=== PATIENT | male | born 1940 | race Caucasian/White ===

== ENCOUNTER 2016-04-15 07:18 | Day surgery (SDC) | payer MEDICARE, OTHER ==
[2016-04-15] VITALS (11 sets, daily range): BP systolic 104–128; BP diastolic 52–80; PULSE 93–105; RESP 15–21; Ht 167.6 cm; Wt 66.4 kg
[~2016-04-15] VITALS: Ht 167.6 cm; Wt 66.4 kg
[~2016-04-15 07:18] MED LIST: CIPROFLOXACIN 400 MG in D5W 200 ML IVPB SCH
[2016-04-15] MEDS ORDERED: PROPOFOL 20 ML ONE (09:34)
[2016-04-15] MEDS ORDERED: LIDOCAINE 2% (SDV) 5 ML INJ ONE (09:34)
[2016-04-15] MEDS ORDERED: FENTAnyl 50 MCG/ML VIAL ONE (09:34)
[2016-04-15] MEDS ORDERED: SUCCINYLCHOLINE CHLORIDE 100 MG/5 ML SYG IV ONE (09:34)
[2016-04-15] MEDS ORDERED: IOHEXOL 300MG/ML 30 ML BTL ONE (10:25)
[2016-04-15] MEDS ORDERED: LACTATED RINGER'S 1,000 ML IV SCH (10:30)
--- NOTE | 2016-04-15 10:33 | RADRPT ---
PROCEDURE: XR Chest AP portable CLINICAL INDICATION: Preop biliary stent TECHNIQUE: An AP portable radiograph of the chest was submitted. COMPARISON: None. FINDINGS: Support Hardware: None Cardiovascular: The cardiovascular silhouette appears unremarkable. Lung Bonilla: The lung bonilla appear clear with no nodule, alveolar infiltrate, for a interstitial pr ominence evident. Pleural Spaces: No pneumothorax or pleural effusion is identified. Osseous Structures: The osseous structures appear intact. Soft Tissues: The soft tissues appear unremarkable. IMPRESSION: Unremarkable portable chest. Physician Usha Date Time Electronically viewed and signed by Lurdes Toney Physician on 04/15/2016 10:33 /
[2016-04-15] MEDS ORDERED: PIOG45TA6 PO (10:37)
[2016-04-15] MEDS ORDERED: DIGO125T19 PO (10:37)
[2016-04-15] MEDS ORDERED: VALS1TAB76 (10:37)
[2016-04-15] MEDS ORDERED: CHOL100062 PO (10:37)
[2016-04-15] MEDS ORDERED: METF1000 (10:37)
[2016-04-15] MEDS ORDERED: BRIM15DR2 (10:37)
[2016-04-15] MEDS ORDERED: MULT-761 PO (10:37)
[2016-04-15] MEDS ORDERED: ESCI10TA48 (10:37)
[2016-04-15] MEDS ORDERED: CALCIUM-VIT D PO (10:37)
[2016-04-15] MEDS ORDERED: SITA100T8 (10:37)
[2016-04-15] MEDS ORDERED: METO200T4 PO (10:37)
[2016-04-15] MEDS ORDERED: RIVA20TA PO (10:37)
[2016-04-15] MEDS ORDERED: ESCI10TA PO (10:37)
[2016-04-15] MEDS ORDERED: MTF1000T PO (10:37)
[2016-04-15] MEDS ORDERED: NOVO3I SQ (10:37)
[2016-04-15] MEDS ORDERED: ESOM40CA (10:37)
[2016-04-15] MEDS ORDERED: ROSU20TA PO (10:37)
--- NOTE | 2016-04-15 11:49 | RADRPT ---
Vent Rate: 89 bpm RR Interval: 0 msec WV Interval: 0 msec QRS Duration: 88 msec QT Interval: 346 msec QTC Interval: 420 msec P-R-T Elma: 0 - 39 - -83 degrees Atrial fibrillation Possible Anterior infarct , age undetermined ST amp; T wave abnormality, consider inferior ischemia or digitalis effect Abnormal ECG Electronically Signed By: Tevin Adan [id number]
[2016-04-15] MEDS ORDERED: FENTAnyl 50 MCG/ML VIAL IV PRN ×2 (12:00)
[2016-04-15] MEDS ORDERED: DIPHENHYDRAMINE 50 MG INJ IV PRN (12:00)
[2016-04-15] MEDS ORDERED: ONDANSETRON 4 MG INJ IV PRN (12:00)
[2016-04-15] MEDS ORDERED: MIDAZOLAM 1 MG/ML 2 ML INJ IV PRN (12:00)
[2016-04-15] MEDS ORDERED: METOCLOPRAMIDE 10 MG INJ IV PRN (12:00)
[2016-04-15] MEDS ORDERED: MEPERIDINE 25 MG INJ IV PRN (12:00)
--- NOTE | 2016-04-15 14:59 | GILP ---
DATE OF PROCEDURE: PROCEDURE PERFORMED: ERCP with removal of the stent and of the biliary system. INDICATION: A 75-year-old male undergoing this procedure for the removal of the stent and also for cholangiogram to make sure there is no stone. The risk of the procedure, related and unrelated comp lications, anesthetic risks, alternatives discussed and informed consent was obtained. DESCRIPTION OF PROCEDURE: The patient was brought to the OR room #2 and placed in a prone position. [facility]. After intubation, scope was pass ed with much ease into esophagus, advanced further down into stomach and duodenum. Stent was identi fied. It was almost migrating into the bile duct, barely 0.5 cm of it was visible and it was also b uried into the granulation tissue. With the help of biopsy forceps, the stent was pulled out and then with the help of snare removed through the biopsy channel. Bile duct was selectively cannu lated. No filling defect as such was seen, but the distal part was not well visualized, the ampulla ry portion. We swept the bile duct multiple times, 12 mm balloon would come out easily, so decided not to put another stent or do a sphincterotomy. There was also enough room to extend the sphincter otomy. Total fluoro time was 3 seconds. Scope was removed with good patient tolerance. IMPRESSION 1. Removal of the stent, which was almost buried into the ampulla. 2. Sweeping of the bile duct multiple times making sure that there was no stone left behind and the 12 mm balloon would come out easily. 3. Total fluor time was 3 seconds. PLAN: Monitor LFT as an outpatient. The patient can be back on a regular diet and Xarelto. Dictated By: JANESSA CORONADO/SUN Conf#: [id number] DID#: [id number]
--- NOTE | 2016-04-15 16:34 | RADRPT ---
PROCEDURE: X-ray fluoroscopy guidance CLINICAL INDICATION: Pain TECHNIQUE: Fluoroscopic guidance was utilized for ERCP. COMPARISON: None available FINDINGS: Fluoroscopic guidance was provided. 4.4 seconds of fluoroscopy time was utilized for the procedure. Two images were obtained during the procedure in progress. IMPRESSION: 1. X-ray fluoroscopic guidance, as above. RPTAT: QQ .Josh Zavala MD, MD Date Time Electronically viewed and signed by .Josh Zavala MD, MD on 04/15/2016 12:15 .R/
== END 2016-04-15 14:45 | disposition home or self-care (01) ==
LOC: GIL 07:18 → SDS 07:18
PROVIDERS: ATTEND Internal Medicine Gastroenterology
DX: Z45.89 Encounter for adjustment and management of other implanted devices (principal); I10 Essential (primary) hypertension; E78.5 Hyperlipidemia, unspecified; I73.9 Peripheral vascular disease, unspecified; F41.8 Other specified anxiety disorders; E11.9 Type 2 diabetes mellitus without complications
CPT/HCPCS: 43276; 43277; 71010; 74330; 82962; 93005; J0330; J0744; J3010; Q9967